=== PATIENT | male | born 1970 | race Caucasian/White ===

== ENCOUNTER 2016-07-10 23:18 | Inpatient (IN) | payer OTHER ==
[~2016-07-10] VITALS: Ht 185.4 cm; Wt 168.7 kg
[~2016-07-10 23:18] MED LIST: TOPROL XL6.25 MG PO; ZESTRIL,PRINIV2.5 MG PO; ZOCOR20 MG PO
[2016-07-11 00:41] LABS: EOSINOPHIL (%) 1.4 % (0-5); EOSINOPHIL COUNT 0.2 K/uL (0-0.3); HEMATOCRIT 39.2 % (38.0-50.0); IMMATURE GRANULOCYTE (%) 0.2 % (0.0-0.7); IMMATURE GRANULOCYTE COUNT 0.2 K/uL; LYMPHOCYTE COUNT 2.1 K/uL (1.0-2.8); MCH 27.5 PG (29.0-34.0); MCHC 32.7 G/DL (30.0-36.0); MCV 84.3 FL (86-99); MEAN PLAT.VOLUME 10.4 uM^3 (9.0-12.4); MONOCYTE (%) 7.7 % (3-12); NEUTROPHIL COUNT 9.5 K/uL (1.8-6.4); PLATELET COUNT 214 K/uL (156-360); RBC DIS.WIDTH-SD 39.6 % (39-53); RED BLOOD COUNT 4.65 M/uL (4.00-5.50); WHITE BLOOD COUNT 12.9 K/uL (4.1-10.2)
[2016-07-11 00:50] LABS: CHLORIDE 104 mEq/L (99-109); POTASSIUM 3.8 mEq/L (3.7-5.4); SODIUM 139 mEq/L (136-147)
[2016-07-11 00:53] LABS: GLUCOSE 138 mg/dL (70-99)
[2016-07-11 00:54] LABS: ANION GAP 11 MEQ/L (2-14)
[2016-07-11 00:55] LABS: TOTAL BILIRUBIN 0.3 mg/dL (0.0-1.0)
[2016-07-11 00:56] LABS: ALKALINE PHOSPHATASE 60 IU/L (3-129); GFR ESTIMATE (CALCULATED) > 59 mL/min/
[2016-07-11 00:57] LABS: UREA NITROGEN (BUN) 9 mg/dL (9-23)
[2016-07-11 01:00] LABS: LIPASE 45 U/L (1.0-51.0)
[2016-07-11 01:25] LABS: ADD MIUA? YES; BILIRUBIN NEGATIVE; BLOOD SMALL; COLOR STRAW ((YELLOW)); GLUCOSE (STRIP) NEGATIVE; KETONES NEGATIVE; LEUKOCYTES NEGATIVE; NITRITE NEGATIVE; PROTEIN (STRIP) NEGATIVE; SPECIFIC GRAVITY 1.014 (1.000-1.030); UROBILINOGEN 0.2 MG/DL (0.2-1.0)
[2016-07-11 01:30] LABS: BACTERIA NONE SEEN /HPF; EPITHELIAL CELLS RARE /HPF; MUCUS TRACE /LPF; RED BLOOD CELLS 0-5 /HPF (0-5); UCUL ADDED? NO; WHITE BLOOD CELLS 0-5 /HPF (0-5)
[2016-07-11 04:50] VITALS: BP 143/75
[2016-07-11 05:00] VITALS: BP 148/75
[2016-07-11 07:07] LABS: POINT-OF-CARE METER ID UU14188577
[2016-07-11 07:48] LABS: ALKALINE PHOSPHATASE 51 IU/L (3-129); ANION GAP 8 MEQ/L (2-14); CHLORIDE 103 MEQ/L (99-109); GFR ESTIMATE (CALCULATED) > 59 mL/min/; GLUCOSE 113 mg/dL (70-99); POTASSIUM 4.1 MEQ/L (3.7-5.4); SAMPLE HEMOLYSIS CHECK 0; SAMPLE ICTERIC CHECK 0; SAMPLE LIPEMIA CHECK 0; SODIUM 139 MEQ/L (136-147); TOTAL BILIRUBIN 0.5 MG/DL (0.0-1.0); UREA NITROGEN (BUN) 7 mg/dL (9-23)
[2016-07-11 08:03] LABS: MCH 28.4 PG (29.0-34.0); MCHC 32.9 G/DL (30.0-36.0); MCV 86.4 FL (86-99); MEAN PLAT.VOLUME 10.9 uM^3 (9.0-12.4); PLATELET COUNT 213 K/uL (156-360); RBC DIS.WIDTH-CV 13.2 % (11.8-14.6); RBC DIS.WIDTH-SD 41.7 % (39-53); WHITE BLOOD COUNT 12.4 K/uL (4.1-10.2)
[2016-07-11 08:24] VITALS: BP 119/56
[2016-07-11] MEDS ORDERED: TOPROL XL50 MG PO (09:38)
[2016-07-11] MEDS ORDERED: NORVASC5 MG PO (09:39)
[2016-07-11] MEDS ORDERED: ZESTORETIC 20-1 EAC1 PO (09:40)
[2016-07-11] MEDS ORDERED: GLUCOPHAGE500 MG PO (09:40)
[2016-07-11] MEDS ORDERED: GLUCOPHAGE XR,500 MG PO (09:41)
[2016-07-11 11:27] VITALS: BP 137/79
[2016-07-11 16:03] VITALS: BP 125/75
[2016-07-11 16:23] LABS: POINT-OF-CARE METER ID UU14188577
[2016-07-11 21:21] LABS: POINT-OF-CARE METER ID UU13113675; POINT-OF-CARE USER ID 515036437
[2016-07-11 23:27] LABS: POINT-OF-CARE METER ID UU14149397
[2016-07-12 00:30] VITALS: BP 127/58
[2016-07-12 04:09] VITALS: BP 109/66
[2016-07-12 05:38] LABS: HEMATOCRIT 39.4 % (38.0-50.0); MCH 26.9 PG (29.0-34.0); MEAN PLAT.VOLUME 10.7 uM^3 (9.0-12.4); PLATELET COUNT 204 K/uL (156-360); RBC DIS.WIDTH-CV 13.4 % (11.8-14.6); RBC DIS.WIDTH-SD 42.6 % (39-53); RED BLOOD COUNT 4.53 M/uL (4.00-5.50)
[2016-07-12 06:02] LABS: ANION GAP 7 MEQ/L (2-14); CHLORIDE 102 MEQ/L (99-109); GFR ESTIMATE (CALCULATED) > 59 mL/min/; GLUCOSE 110 mg/dL (70-99); POTASSIUM 4.9 MEQ/L (3.7-5.4); SAMPLE HEMOLYSIS CHECK 0; SAMPLE ICTERIC CHECK 0; SAMPLE LIPEMIA CHECK 0; SODIUM 138 MEQ/L (136-147); UREA NITROGEN (BUN) 10 mg/dL (9-23)
[2016-07-12 08:17] VITALS: BP 136/74
[2016-07-12 11:41] VITALS: BP 137/79
[2016-07-12 16:40] VITALS: BP 144/77
[2016-07-12 23:19] LABS: POINT-OF-CARE METER ID UU14188577
[2016-07-12 23:31] VITALS: BP 130/76
[2016-07-13 05:52] LABS: ANION GAP 7 MEQ/L (2-14); CHLORIDE 102 MEQ/L (99-109); GFR ESTIMATE (CALCULATED) > 59 mL/min/; GLUCOSE 112 mg/dL (70-99); SAMPLE HEMOLYSIS CHECK 0; SAMPLE ICTERIC CHECK 0; SAMPLE LIPEMIA CHECK 0; SODIUM 138 MEQ/L (136-147); UREA NITROGEN (BUN) 9 mg/dL (9-23)
[2016-07-13 05:53] LABS: HEMATOCRIT 37.1 % (38.0-50.0); MCH 26.8 PG (29.0-34.0); MCHC 31.3 G/DL (30.0-36.0); MCV 85.7 FL (86-99); MEAN PLAT.VOLUME 10.6 uM^3 (9.0-12.4); PLATELET COUNT 202 K/uL (156-360); RBC DIS.WIDTH-SD 40.6 % (39-53); RED BLOOD COUNT 4.33 M/uL (4.00-5.50)
[2016-07-13 05:54] LABS: WHITE BLOOD COUNT 6.7 K/uL (4.1-10.2)
[2016-07-13 08:06] VITALS: BP 138/74
[2016-07-13 11:55] LABS: POINT-OF-CARE METER ID UU14149397
[2016-07-13] MEDS ORDERED: POLYETHYLENE GL17 GM PO (16:50)
[2016-07-13] MEDS ORDERED: SENNA PLUS TAB1 EACH PO (16:50)
[2016-07-13] MEDS ORDERED: NUPERCAINAL,28.35 GM TP (16:50)
[2016-07-13] MEDS ORDERED: OXYCODONE HCL5 MG PO (16:50)
[2016-07-13] MEDS ORDERED: AUGMENTIN875 MG PO (16:55)
[2016-07-13 17:05] VITALS: BP 145/96
== END 2016-07-13 20:15 | disposition home or self-care (01) | DRG 394 ==
LOC: EME 23:18 → 3EAST 07-11 03:28 → EDOF 07-11 03:28 → 3EAST 07-11 04:37
PROVIDERS: Emergency Medicine; Hospitalist; Internal Medicine; Physician Assistant; Surgery
PROC: 0D9P70Z Drainage of Rectum with Drainage Device, Via Natural or Artificial Opening (ICD-10-PCS; principal; 2016-07-11)
DX: K61.1 Rectal abscess (principal); Z68.42 Body mass index [BMI] 45.0-49.9, adult; B96.89 Other specified bacterial agents as the cause of diseases classified elsewhere; N28.1 Cyst of kidney, acquired; K59.00 Constipation, unspecified; I10 Essential (primary) hypertension; E78.00 Pure hypercholesterolemia, unspecified; E11.9 Type 2 diabetes mellitus without complications; E66.01 Morbid (severe) obesity due to excess calories
CPT/HCPCS: 74177; 80048; 80053; 81003; 82948; 83605; 83690; 85025; 85027; 87040; 87070; 87075; 87076; 87185; 87205; 99281; 99284; J1170; J1644; J1815; J2250; J2270; J2405; J2543; J3010; J7030; J7050; J7120

== ENCOUNTER 2016-07-14 22:39 | Emergency (ER) | payer OTHER ==
[~2016-07-14] VITALS: Ht 185.4 cm; Wt 171.0 kg
[~2016-07-14 22:39] MED LIST changes: +AUGMENTIN875 MG PO; +GLUCOPHAGE XR,500 MG PO; +GLUCOPHAGE500 MG PO; +NORVASC5 MG PO; +NUPERCAINAL,28.35 GM TP; +OXYCODONE HCL5 MG PO; +POLYETHYLENE GL17 GM PO; +SENNA PLUS TAB1 EACH PO; +TOPROL XL50 MG PO; +ZESTORETIC 20-1 EAC1 PO
[2016-07-15 00:04] VITALS: BP 156/92
== END 2016-07-15 00:05 | disposition home or self-care (01) ==
LOC: EME 22:39 → EXP 22:39
DX: L76.22 Postprocedural hemorrhage of skin and subcutaneous tissue following other procedure (principal); K64.9 Unspecified hemorrhoids; I10 Essential (primary) hypertension; E78.5 Hyperlipidemia, unspecified
CPT/HCPCS: 99281; 99283

== ENCOUNTER → 2016-07-25 | Outpatient (CLI) | payer OTHER ==
[~2016-07-25] MED LIST changes: +HYDROCODON-ACE1 EAC9 PO
== END | disposition home or self-care (01) ==
LOC: CDC 12:43
DX: Z01.810 Encounter for preprocedural cardiovascular examination (principal); E11.9 Type 2 diabetes mellitus without complications; I10 Essential (primary) hypertension
CPT/HCPCS: 93000

== ENCOUNTER 2016-07-28 09:56 | Day surgery (SDC) | payer OTHER ==
[~2016-07-28] VITALS: Ht 186.7 cm; Wt 163.3 kg
[~2016-07-28 09:56] MED LIST changes: -HYDROCODON-ACE1 EAC9 PO
[2016-07-28 10:36] VITALS: BP 131/71
[2016-07-28 10:36] LABS: POINT-OF-CARE METER ID UU14174212
[2016-07-28 11:47] LABS: METH RESISTANT S AUREUS PCR NEGATIVE (NEGATIVE); PROBE CHECK PASS; SPECIMEN PROCESSING CONTROL PASS
[2016-07-28] MEDS ORDERED: HYDROCODON-ACE1 EAC9 PO (13:15)
[2016-07-28 13:45] LABS: POINT-OF-CARE METER ID UU13113675
[2016-07-28 14:20] VITALS: BP 138/81
[2016-07-28 15:31] VITALS: BP 156/85
== END 2016-07-28 15:45 | disposition home or self-care (01) ==
LOC: SDC 09:56
PROVIDERS: Surgery
PROC: 0DQQ0ZZ Repair Anus, Open Approach (ICD-10-PCS; principal; 2016-07-28)
DX: K60.3 Anal fistula (principal); E11.9 Type 2 diabetes mellitus without complications; I10 Essential (primary) hypertension; E78.5 Hyperlipidemia, unspecified; E66.01 Morbid (severe) obesity due to excess calories; Z68.42 Body mass index [BMI] 45.0-49.9, adult
CPT/HCPCS: 82948; 87641; J0330; J0690; J1170; J2250; J2405; J2710; J3010; S0020

== ENCOUNTER 2016-08-18 07:24 | Day surgery (SDC) | payer OTHER ==
[~2016-08-18] VITALS: Ht 185.4 cm; Wt 163.2 kg
[~2016-08-18 07:24] MED LIST changes: +HYDROCODON-ACE1 EAC9 PO
[2016-08-18 07:53] VITALS: BP 131/72
[2016-08-18 07:58] LABS: POINT-OF-CARE METER ID UU14174212
[2016-08-18 10:51] LABS: POINT-OF-CARE METER ID UU13113675
[2016-08-18 11:16] VITALS: BP 124/68
[2016-08-18 12:16] VITALS: BP 118/66
== END 2016-08-18 12:38 | disposition home or self-care (01) ==
LOC: SDC 07:24
PROVIDERS: Surgery
DX: K60.3 Anal fistula (principal); L92.9 Granulomatous disorder of the skin and subcutaneous tissue, unspecified; E11.9 Type 2 diabetes mellitus without complications; I10 Essential (primary) hypertension; E78.5 Hyperlipidemia, unspecified; Z79.84 Long term (current) use of oral hypoglycemic drugs
CPT/HCPCS: 82948; J0330; J2250; J2405; J3010; S0020